=== PATIENT | female | born 1995 | race Hispanic/Latino ===

== ENCOUNTER 2018-07-08 19:20 | Emergency (ER) | payer SELFPAY ==
[~2018-07-08] VITALS: Ht 160 cm; Wt 86.2 kg
[2018-07-08] MEDS ORDERED: DEXAMETHASONE SOD PHOS 10 MG/1 ML VIAL INJ ONE (20:30)
[2018-07-08] MEDS ORDERED: TETRACAINE HCL 0.5% OPTH SOLN 4 ML BTL OP ONE (20:30)
[2018-07-08] MEDS ORDERED: HYDROCODONE/APAP 10MG-325MG TAB PO ONE (20:30)
== END 2018-07-08 22:02 | disposition home or self-care (01) ==
LOC: ER 19:20
DX: H60.92 Unspecified otitis externa, left ear (principal); H60.332 Swimmer's ear, left ear
CPT/HCPCS: 96372; 99282; J1100